=== PATIENT | female | born 1980 | race Caucasian/White ===

== ENCOUNTER 2016-09-05 20:59 | Emergency (ER) | payer MEDICAID ==
[~2016-09-05 20:59] MED LIST: ACET325T14 PO; AMPI3VIA IV
[2016-09-06] MEDS ORDERED: BACITRACIN ZINC OINT 500U/GM, 0.9 GM ONE (01:33)
== END 2016-09-05 22:02 | disposition left against medical advice (07) ==
LOC: ED 21:56
DX: R05 Cough (principal); Z53.21 Procedure and treatment not carried out due to patient leaving prior to being seen by health care provider

== ENCOUNTER 2016-09-06 08:06 | Emergency (ER) | payer MEDICAID ==
[~2016-09-06] VITALS: Ht 160 cm; Wt 41.1 kg
[2016-09-06 08:09] VITALS: BP 111/81
== END 2016-09-06 12:23 | disposition home or self-care (01) ==
LOC: ED 08:35
DX: S02.66XA Fracture of symphysis of mandible, initial encounter for closed fracture (principal); S01.81XA Laceration without foreign body of other part of head, initial encounter; F17.200 Nicotine dependence, unspecified, uncomplicated; Z90.49 Acquired absence of other specified parts of digestive tract; W01.0XXA Fall on same level from slipping, tripping and stumbling without subsequent striking against object, initial encounter; Y93.89 Activity, other specified; Y92.89 Other specified places as the place of occurrence of the external cause; Y99.8 Other external cause status
CPT/HCPCS: 70100; 70486; 99284

== ENCOUNTER 2016-09-29 12:26 | Emergency (ER) | payer MEDICAID ==
[~2016-09-29] VITALS: Ht 160 cm; Wt 38.1 kg
[2016-09-29 12:44] VITALS: BP 105/71
[2016-09-29] MEDS ORDERED: HYDROcodone/APAP 5/325 TABLET ONE (14:20)
[2016-09-29] MEDS ORDERED: LIDOCAINE 1%, 20ML ONE ×2 (14:26→15:10)
[2016-09-29] MEDS ORDERED: HYDROcodone/APAP 5/325 TABLET PO ONE (14:30)
[2016-09-29] MEDS ORDERED: LIDOCAINE 1%, 20ML INFIL ONE (14:30)
== END 2016-09-29 16:01 | disposition home or self-care (01) ==
LOC: ED 15:35
DX: L02.413 Cutaneous abscess of right upper limb (principal); F17.200 Nicotine dependence, unspecified, uncomplicated
CPT/HCPCS: 10060

== ENCOUNTER 2016-10-01 15:37 | Emergency (ER) | payer MEDICAID ==
[~2016-10-01] VITALS: Ht 160 cm; Wt 34.2 kg
[2016-10-01] MEDS ORDERED: CEFTRIAXONE 1,000 MG IM ONE (16:30)
[2016-10-01] MEDS ORDERED: CEFTRIAXONE 1,000 MG ONE (17:03)
[2016-10-01 18:28] VITALS: BP 115/72
== END 2016-10-01 19:05 | disposition home or self-care (01) ==
LOC: ED 18:30
DX: L03.113 Cellulitis of right upper limb (principal); L02.413 Cutaneous abscess of right upper limb
CPT/HCPCS: 73090; 87070; 87205; 96372; 99284; J0696; 87075

== ENCOUNTER 2016-11-08 22:35 | Inpatient (IN) | payer MEDICAID ==
[~2016-11-08] VITALS: Ht 160 cm; Wt 43.8 kg
[2016-11-09] MEDS ORDERED: MORPHINE SULFATE 4 MG/ML, 1ML IV PRN
[2016-11-09] MEDS ORDERED: SODIUM CHLORIDE FLUSH 10ML SYR IVF ONE
[2016-11-09] MEDS ORDERED: CLINDAMYCIN PMX 600MG/50ML 50 ML IVPB ONE
[2016-11-09] MEDS ORDERED: SODIUM CHLORIDE 0.9% 1,000ML IVBOLUS ONE
[2016-11-09] MEDS ORDERED: ONDANSETRON 2MG/ML, 2ML IVPush ONE
[2016-11-09] MEDS ORDERED: IBUPROFEN 200 MG TABLET PO ONE
[2016-11-09 00:08] LABS: BLOOD UREA NITROGEN 10 mg/dL (7-18)
[2016-11-09] MEDS ORDERED: MORPHINE SULFATE 4 MG/ML, 1ML ONE (00:09)
[2016-11-09] MEDS ORDERED: IBUPROFEN 200 MG TABLET ONE (00:09)
[2016-11-09] MEDS ORDERED: ONDANSETRON 2MG/ML, 2ML ONE (00:10)
[2016-11-09] MEDS ORDERED: CLINDAMYCIN PMX 600MG/50ML 50 ML ONE (00:10)
[2016-11-09] MEDS ORDERED: morphine SULFATE 10 MG/ML, 1ML IVPush PRN (01:00)
[2016-11-09] MEDS ORDERED: LABETALOL 5MG/ML 40ML VIAL IVPush PRN (01:00)
[2016-11-09] MEDS ORDERED: ONDANSETRON ODT 4 MG PO PRN (01:00)
[2016-11-09] MEDS ORDERED: DOCUSATE 100 MG CAPSULE PO PRN (01:00)
[2016-11-09] MEDS ORDERED: ACETAMINOPHEN 325 MG TABLET PO PRN (01:00)
[2016-11-09] MEDS ORDERED: ONDANSETRON 2MG/ML, 2ML IVPush PRN (01:00)
[2016-11-09 01:19] VITALS: BP 128/87
[2016-11-09] MEDS: AMPICILLIN/SULBACTAM 3 GM in SODIUM CHLORIDE 0.9% 100 ML IV SCH ×3 (01:51→16:57)
[2016-11-09] MEDS: HEPARIN 5,000 UNITS/ML, 1ML SQ SCH ×3 (01:51→16:58)
[2016-11-09] MEDS: NICOTINE 7 MG/24 HR PATCH.TD24 TD SCH (01:51)
[2016-11-09 03:16] VITALS: BP 128/87
[2016-11-09] MEDS: CLINDAMYCIN PMX 600MG/50ML 50 ML IV SCH ×3 (07:54→23:55)
[2016-11-09] MEDS ORDERED: THIAMINE 200 MG in SODIUM CHLORIDE 0.9% 50 ML IV ONE (08:30)
[2016-11-09] MEDS ORDERED: LORazepam 1MG TABLET PO PRN (08:30)
[2016-11-09 08:44] VITALS: BP 113/76
[2016-11-09] MEDS ORDERED: THIAMINE 50MG TABLET PO SCH (09:00)
[2016-11-09] MEDS: SODIUM CHLORIDE 0.9% 1,000 ML IV SCH ×2 (09:17→23:55)
[2016-11-09] MEDS: MULTIVITAMIN 1 TABLET PO SCH (09:17)
[2016-11-09] MEDS: FAMOTIDINE 20 MG TABLET PO SCH ×2 (09:17→20:59)
[2016-11-09] MEDS: FOLIC ACID 1 MG TABLET PO SCH (09:17)
[2016-11-09 16:41] VITALS: BP 114/76
[2016-11-09 20:44] VITALS: BP 119/78
[2016-11-10 01:24] VITALS: BP 120/81
[2016-11-10] MEDS: AMPICILLIN/SULBACTAM 3 GM in SODIUM CHLORIDE 0.9% 100 ML IV SCH ×3 (01:28→18:09)
[2016-11-10] MEDS: NICOTINE 7 MG/24 HR PATCH.TD24 TD SCH (01:29)
[2016-11-10] MEDS: HEPARIN 5,000 UNITS/ML, 1ML SQ SCH ×3 (01:30→18:09)
[2016-11-10 05:26] LABS: ASPARTATE AMINO TRANSFERASE 35 U/L (15-37); BLOOD UREA NITROGEN 10 mg/dL (7-18)
[2016-11-10 07:40] VITALS: BP 130/78
[2016-11-10] MEDS ORDERED: VANCOMYCIN PMX 1GM/200ML 200 ML IV ONE (08:00)
[2016-11-10] MEDS ORDERED: VANCOMYCIN PER PHARMACY MC PRN (08:00)
[2016-11-10] MEDS ORDERED: PHARMACOKINETIC MONITORING MC PRN (08:30)
[2016-11-10] MEDS ORDERED: PHARMACOKINETIC CONSULTATION MC ONE (08:30)
[2016-11-10] MEDS ORDERED: VANCOMYCIN PMX 1GM/200ML 200 ML IV SCH ×2 (09:00→11:15)
[2016-11-10] MEDS: FOLIC ACID 1 MG TABLET PO SCH (09:35)
[2016-11-10] MEDS: MULTIVITAMIN 1 TABLET PO SCH (09:35)
[2016-11-10] MEDS: THIAMINE 50MG TABLET PO SCH (09:36)
[2016-11-10] MEDS: FAMOTIDINE 20 MG TABLET PO SCH ×2 (09:36→20:12)
[2016-11-10] MEDS: VANCOMYCIN PMX 1GM/200ML 200 ML IV SCH ×2 (10:35→22:33)
[2016-11-10 14:46] VITALS: BP 123/81
[2016-11-10 20:00] VITALS: BP 131/86
[2016-11-10] MEDS: SODIUM CHLORIDE 0.9% 1,000 ML IV SCH (20:12)
[2016-11-11] MEDS: HEPARIN 5,000 UNITS/ML, 1ML SQ SCH ×3 (01:04→17:07)
[2016-11-11] MEDS: AMPICILLIN/SULBACTAM 3 GM in SODIUM CHLORIDE 0.9% 100 ML IV SCH ×3 (01:04→17:07)
[2016-11-11] MEDS: NICOTINE 7 MG/24 HR PATCH.TD24 TD SCH (01:05)
[2016-11-11] MEDS: TEMAZEPAM 15 MG CAPSULE PO PRN ×2 (01:56→21:19)
[2016-11-11 02:04] VITALS: BP 127/77
[2016-11-11 05:06] LABS: BLOOD UREA NITROGEN 8 mg/dL (7-18)
[2016-11-11 09:10] VITALS: BP 126/81
[2016-11-11] MEDS: FOLIC ACID 1 MG TABLET PO SCH (09:13)
[2016-11-11] MEDS: MULTIVITAMIN 1 TABLET PO SCH (09:13)
[2016-11-11] MEDS: FAMOTIDINE 20 MG TABLET PO SCH ×2 (09:13→21:19)
[2016-11-11] MEDS: THIAMINE 50MG TABLET PO SCH (09:14)
[2016-11-11] MEDS: VANCOMYCIN PMX 1GM/200ML 200 ML IV SCH ×2 (10:11→21:19)
[2016-11-11] MEDS: SODIUM CHLORIDE 0.9% 1,000 ML IV SCH (10:11)
[2016-11-11 14:06] VITALS: BP 131/80
[2016-11-11 19:48] VITALS: BP 150/97
[2016-11-12] MEDS: NICOTINE 7 MG/24 HR PATCH.TD24 TD SCH (01:15)
[2016-11-12] MEDS: AMPICILLIN/SULBACTAM 3 GM in SODIUM CHLORIDE 0.9% 100 ML IV SCH ×2 (01:15→09:14)
[2016-11-12] MEDS: HEPARIN 5,000 UNITS/ML, 1ML SQ SCH ×3 (01:16→17:06)
[2016-11-12 02:01] VITALS: BP 128/86
[2016-11-12 07:10] VITALS: BP 130/92
[2016-11-12] MEDS: FAMOTIDINE 20 MG TABLET PO SCH ×2 (09:15→19:42)
[2016-11-12] MEDS: THIAMINE 50MG TABLET PO SCH (09:15)
[2016-11-12] MEDS: FOLIC ACID 1 MG TABLET PO SCH (09:15)
[2016-11-12] MEDS: MULTIVITAMIN 1 TABLET PO SCH (09:15)
[2016-11-12] MEDS: VANCOMYCIN PMX 1GM/200ML 200 ML IV SCH (09:59)
[2016-11-12] MEDS: CEFAZOLIN PMX 2GM/50ML 50 ML IV SCH ×2 (11:55→19:42)
[2016-11-12 12:40] VITALS: BP 135/90
[2016-11-12 19:03] VITALS: BP 120/74
[2016-11-13 01:20] VITALS: BP 117/72
[2016-11-13] MEDS: HEPARIN 5,000 UNITS/ML, 1ML SQ SCH ×3 (01:23→17:06)
[2016-11-13] MEDS: NICOTINE 7 MG/24 HR PATCH.TD24 TD SCH (01:24)
[2016-11-13] MEDS: CEFAZOLIN PMX 2GM/50ML 50 ML IV SCH ×3 (04:09→19:55)
[2016-11-13 07:40] VITALS: BP 152/89
[2016-11-13] MEDS: MULTIVITAMIN 1 TABLET PO SCH (09:01)
[2016-11-13] MEDS: FOLIC ACID 1 MG TABLET PO SCH (09:01)
[2016-11-13] MEDS: FAMOTIDINE 20 MG TABLET PO SCH ×2 (09:01→19:55)
[2016-11-13] MEDS: THIAMINE 50MG TABLET PO SCH (09:01)
[2016-11-13 14:30] VITALS: BP 101/64
[2016-11-13 18:49] VITALS: BP 115/75
[2016-11-13] MEDS: TEMAZEPAM 15 MG CAPSULE PO PRN (21:54)
[2016-11-14] MEDS: HEPARIN 5,000 UNITS/ML, 1ML SQ SCH ×3 (01:02→17:13)
[2016-11-14] MEDS: NICOTINE 7 MG/24 HR PATCH.TD24 TD SCH (01:04)
[2016-11-14 02:50] VITALS: BP 111/78
[2016-11-14] MEDS: CEFAZOLIN PMX 2GM/50ML 50 ML IV SCH ×3 (04:01→20:46)
[2016-11-14 07:44] VITALS: BP 124/63
[2016-11-14] MEDS: MULTIVITAMIN 1 TABLET PO SCH (10:15)
[2016-11-14] MEDS: THIAMINE 50MG TABLET PO SCH (10:15)
[2016-11-14] MEDS: FAMOTIDINE 20 MG TABLET PO SCH ×2 (10:15→20:44)
[2016-11-14] MEDS: FOLIC ACID 1 MG TABLET PO SCH (10:15)
[2016-11-14 14:08] VITALS: BP 113/71
[2016-11-14 19:55] VITALS: BP 126/79
[2016-11-15 00:43] VITALS: BP 110/72
[2016-11-15] MEDS: NICOTINE 7 MG/24 HR PATCH.TD24 TD SCH (01:49)
[2016-11-15] MEDS: HEPARIN 5,000 UNITS/ML, 1ML SQ SCH ×2 (01:51→09:52)
[2016-11-15] MEDS: CEFAZOLIN PMX 2GM/50ML 50 ML IV SCH ×2 (04:49→11:51)
[2016-11-15 06:59] VITALS: BP 119/78
[2016-11-15] MEDS: MULTIVITAMIN 1 TABLET PO SCH (09:52)
[2016-11-15] MEDS: FOLIC ACID 1 MG TABLET PO SCH (09:52)
[2016-11-15] MEDS: THIAMINE 50MG TABLET PO SCH (09:52)
[2016-11-15] MEDS: FAMOTIDINE 20 MG TABLET PO SCH (09:52)
[2016-11-15 13:36] VITALS: BP 107/72
[2016-11-15] MEDS ORDERED: FOLI-17 PO (13:57)
[2016-11-15] MEDS ORDERED: SULF1TAB24 PO (13:57)
[2016-11-15] MEDS ORDERED: MULT1TAB60 PO (13:57)
[2016-11-15] MEDS ORDERED: THIA50TA PO (13:57)
[2016-11-15] MEDS ORDERED: TRAM50TA2 PO (13:57)
[2016-11-15] MEDS ORDERED: NICO1PAT10 TD (13:57)
== END 2016-11-15 17:43 | disposition home or self-care (01) | DRG 871 ==
LOC: ED 23:59 → EDIP 11-09 00:15 → 3NE 11-09 01:00
PROVIDERS: ADMIT Internal Medicine; ATTEND Internal Medicine
DX: A41.9 Sepsis, unspecified organism (principal); E43 Unspecified severe protein-calorie malnutrition; E87.1 Hypo-osmolality and hyponatremia; L03.116 Cellulitis of left lower limb; Z68.1 Body mass index [BMI] 19.9 or less, adult; F17.210 Nicotine dependence, cigarettes, uncomplicated; B95.61 Methicillin susceptible Staphylococcus aureus infection as the cause of diseases classified elsewhere; S81.012A Laceration without foreign body, left knee, initial encounter; F32.9 Major depressive disorder, single episode, unspecified; F41.9 Anxiety disorder, unspecified; F12.90 Cannabis use, unspecified, uncomplicated; R19.7 Diarrhea, unspecified; G89.11 Acute pain due to trauma; V19.9XXA Pedal cyclist (driver) (passenger) injured in unspecified traffic accident, initial encounter; Y92.89 Other specified places as the place of occurrence of the external cause; Y99.8 Other external cause status; Y93.55 Activity, bike riding; Z90.49 Acquired absence of other specified parts of digestive tract; Z83.3 Family history of diabetes mellitus; Z82.49 Family history of ischemic heart disease and other diseases of the circulatory system; Z71.6 Tobacco abuse counseling
CPT/HCPCS: 36415; 80048; 80053; 82040; 82565; 83605; 83735; 84100; 84145; 84520; 85025; 87040; 87070; 87077; 87147; 87150; 87186; 87205; 87324; 96365; 96375; J0295; J0690; J1644; J2405; J3370; J3411; J2270; J7030